=== PATIENT | female | born 1935 | race Caucasian/White ===

== ENCOUNTER 2017-06-08 08:46 | Day surgery (SDC) | payer MEDICARE ==
[~2017-06-08 08:46] MED LIST: RINGER'S SOLUTION,LACTATED 1,000 ML IV PRN
[2017-06-08] MEDS ORDERED: RINGER'S SOLUTION,LACTATED 1,000 ML IV PRN (10:29)
[2017-06-08 11:26] VITALS: BP 127/85
--- NOTE | 2017-06-08 15:49 | OR ---
Operative Report - Dictated Report Narrative: OPERATIVE REPORT DATE OF OPERATION: 06/08/2017 PREOPERATIVE DIAGNOSIS: Anal stenosis. No recent dedicated colon studies POSTOPERATIVE DIAGNOSIS: Anal stenosis. 3 mm polyp at the hepatic flexure ( pathology pending). Sigmoid diverticulosis OPERATION: Balloon dilation of the anus to 20 mm. 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 Vicente. The patient's last colonoscopy was in 2010. There is no family history of colon cancer. The patient has had progressive difficulty stooling due to anal stenosis. FINDINGS: Anal stenosis (successfully dilated to 20 mm). Significant sigmoid diverticulosis. 3 mm polyp at the hepatic flexure (pathology pending) NARRATIVE OF PROCEDURE: The patient was identified in the holding area, and prior to the administration of anesthetic, a multidisciplinary timeout was observed. With the patient in the left lateral position and after the administration of intravenous sedation, the perineum was inspected. There was no evidence of pilonidal disease or skin breakdown. The external appearance of the anus was normal with exception of stenosis. A balloon dilator was advanced into the rectum and the anus was dilated to 18 mm. The flexible fiberoptic colonoscope was inserted into the rectum which was insufflated with air. The rectal mucosa and submucosal vascular pattern appeared normal, the prep was seen to be complete. The scope was slowly withdrawn and readvanced through the anal canal. There was no evidence of neoplasm. The scope was advanced through the sigmoid colon, which contained numerous non-impacted noninflamed diverticular openings. The scope was advanced up the descending colon, and around the splenic flexure where the triangular haustral architecture of the transverse colon was seen. The scope was advanced across the transverse colon, around the hepatic flexure to the cecum, where the confluence of tenia and the ileocecal valve were identified. The mucosa at this level appeared normal. The scope was then slowly withdrawn in a circular fashion so that all aspects of colonic mucosa were inspected. At the hepatic flexure a 3 mm area of polypoid change was encountered. This was biopsied and then thoroughly destroyed with electrocautery. The site was seen to be complete and hemostatic. The colon was normal in course and caliber. The haustral architecture appeared well preserved throughout with no evidence of external compression. The mucosa and submucosal vascular pattern appeared normal, specifically there was no gross evidence to suggest colitis or inflammatory bowel disease and no AV malformations were seen. The diverticulosis was moderate in degree and confined primarily to the sigmoid colon. No additional polyps were encountered. The scope was gradually withdrawn to the level of the rectum. As much insufflated air as possible was removed. The scope was withdrawn from the patient. A balloon dilator was again placed in the anal canal and inflated to 20 mm. The balloon then moved freely through the anal canal. The dilator was removed from the patient and the procedure terminated. The patient tolerated the anesthetic and procedure well without complication and was transferred back to the ambulatory surgery area awake and in stable condition. The patient remained stable throughout a period of postoperative observation. She denied abdominal discomfort, was able to tolerate by mouth intake, and was up without assistance. I shared the operative findings with the patient and she was given copies of the photographs which appear in the medical record. She was discharged home with instructions not to engage in hazardous activity today , but may resume normal activity tomorrow, and advance diet as tolerated. She is to continue those medications as listed in the history and physical exam. I made arrangements to contact her with the biopsy reports and will make additional recommendations for treatment and follow-up based upon those results. A pamphlet on diverticular disease was reviewed with her and given to her. 2 handouts on increased fiber diet were also reviewed with her and given to her. Continued use of a fiber supplement and or MiraLAX was recommended--to titrate his needed. Reviewed and electronically signed
== END 2017-06-08 08:47 | disposition home or self-care (01) ==
LOC: AMB 08:46
PROVIDERS: ATTEND Surgery
PROC: 0DBL8ZX Excision of Transverse Colon, Via Natural or Artificial Opening Endoscopic, Diagnostic (ICD-10-PCS; principal; 2017-06-08 10:15)
DX: Z12.11 Encounter for screening for malignant neoplasm of colon (principal); K63.5 Polyp of colon; K57.30 Diverticulosis of large intestine without perforation or abscess without bleeding; K62.4 Stenosis of anus and rectum; R19.4 Change in bowel habit; Z86.73 Personal history of transient ischemic attack (TIA), and cerebral infarction without residual deficits; Z68.27 Body mass index [BMI] 27.0-27.9, adult